=== PATIENT | female | born 1995 | race Caucasian/White ===

== ENCOUNTER 2019-09-06 22:05 | Emergency (ER) | payer BC ==
[2019-09-06] MEDS ORDERED: Ketorolac INJ* 15 MG/ML 1 ML VIAL IV ONE (22:17)
[2019-09-06] MEDS ORDERED: NS 0.9% 1000 ML** 1,000 ML IV ONE (22:17)
[2019-09-06] MEDS ORDERED: Ondansetron INJ* 2 MG/ML VIAL IV ONE (22:17)
[2019-09-06 22:58] LABS: ABS Lymphocytes 0.8 10^3/ul (1.0-4.8); ABS Monocytes 0.3 10^3/ul (0-0.8); ABS Neutrophils 1.1 10^3/ul (1.5-7.7); Eosinophil % 0.2 %; Hematocrit 40 % (35-47); Hemoglobin 13.2 g/dL (12.0-16.0); Lymphocyte % 38.3 %; Mean Corpuscular HGB Conc 33 g/dL (31-36); Mean Corpuscular Hemoglobin 30 pg (27-31); Mean Corpuscular Volume 91 fL (80-97); Mean Platelet Volume 9.1 fL (7.4-10.4); Nucleated Red Blood Cells % 0.2; Platelet Count 80 10^3/uL (150-450); Red Blood Count 4.37 10^6 /uL (3.70-4.87); Red Cell Distribution Width 14 % (10-15); White Blood Count 2.2 10^3/uL (3.5-10.8)
[2019-09-06 23:00] LABS: ALT 14 U/L (7-52); AST 22 U/L (13-39); Albumin 4.4 g/dL (3.2-5.2); Albumin/Globulin Ratio 1.8 (1-3); Alkaline Phosphatase 38 U/L (34-104); Anion Gap 6 mmol/L (2-11); BUN/Creatinine Ratio 11.6 (8-20); Blood Urea Nitrogen 11 mg/dL (6-24); C Reactive Protein 15.49 mg/L (<8.01); CO2 Carbon Dioxide 27 mmol/L (22-32); Calcium 9.2 mg/dL (8.6-10.3); Chloride 104 mmol/L (101-111); EGFR African American 88.2 (>60); EGFR Non-African American 72.9 (>60); Globulin 2.5 g/dL (2-4); Glucose 100 mg/dL (70-100); Potassium 3.2 mmol/L (3.5-5.0); Sodium 137 mmol/L (135-145); Total Protein 6.9 g/dL (6.4-8.9)
[2019-09-06 23:06] LABS: HCG Pregnancy < 0.60 mIU/mL
[2019-09-06 23:19] LABS: Urine Appearance Clear; Urine Bacteria Absent (Absent); Urine Bilirubin Negative (Negative); Urine Blood 3+ (Negative); Urine Color Yellow; Urine Glucose Negative (Negative); Urine Ketones Negative (Negative); Urine Nitrite Negative (Negative); Urine Protein Negative (Negative); Urine Red Blood Cell 3+(>10/hpf) (Absent); Urine Specific Gravity 1.016 (1.010-1.030); Urine Squamous Epithelial Cell Present (Absent); Urine Urobilinogen Negative (Negative); Urine White Blood Cell Absent (Absent)
--- NOTE | 2019-09-06 23:29 | ED ---
Complex/Multi-Sys Presentation - HPI Summary HPI Summary: This pt is a 24 Y/O F presenting to [facility] accompanied by her friend with a CC of a fever that has been present since 09/04/19 and had a highest temperature of 102 F. She also reports of left flank pain, RUQ, and lower back pain which is rated a 4/10 in severity. She states that the pain is similar to the last time she had mono. She states that the L side of her face is swelling and she has had a decrease in urine. She denies any sore throat, chills, headaches, N/V , dysuria, and decreased appetite. She states that she was recently at and began ABx treatment. She has no aggravating or alleviating factors. She states that she has a PMHx of kidney stones. She is currently menstruating. - History Of Current Complaint Chief Complaint: EDAbdPain Time Seen by Provider: 09/06/19 22:45 Hx Obtained From: Patient Onset/Duration: Sudden Onset, Lasting Days - 3, Still Present Timing: Constant Severity Currently: Moderate - 4/10 Severity Initially: Moderate Location: Pain At: - RUQ and L flank Aggravating Factor(s): nothing Alleviating Factor(s): nothing Associated Signs And Symptoms: Positive: Abdominal Pain - RUQ, Left flank, Back Pain - L low back, Fever - 102 F, Other - NEGATIVE: decreased appetite POSITIVE : swelling on the left side of her face. Negative: Headache, Nausea, Vomiting, Dysuria Related History: Similar Episode/Diagnosed As: - States that this is similar to when she was diagnosed with Marion 3 years ago - Allergies/Home Medications Allergies/Adverse Reactions: Allergies Allergy/AdvReac Type Severity Reaction Status Date / Time No Known Allergies Allergy Verified 09/06/19 22:50 PMH/Surg Hx/FS Hx/Imm Hx Previously Healthy: Yes Endocrine/Hematology History: Denies: Hx Diabetes Cardiovascular History: Denies: Hx Hypertension Respiratory History: Denies: Hx Asthma History: Reports: Hx Kidney Stones Infectious Disease History: No Infectious Disease History: Denies: Traveled Outside the [place] in Last 30 Days - Family History Known Family History: Positive: Hypertension - maternal - Social History Occupation: Student - [place] Lives: Dormitory/Roommates Alcohol Use: Occasionally Hx Substance Use: Yes Substance Use Type: Reports: Marijuana Hx Tobacco Use: No Smoking Status (MU): Never Smoked Tobacco Household Exposure: No Review of Systems Positive: Fever - 102 F . Negative: Chills Negative: Sore Throat Positive: Abdominal Pain - RUQ. Negative: Vomiting, Nausea Positive: flank pain - L sided Musculoskeletal: Other - Low back pain Negative: Headache All Other Systems Reviewed And Are Negative: Yes Physical Exam - Summary Physical Exam Summary: General: Well-developed, Well-nourished female. No acute distress. HEENT: Normocephalic, Atraumatic. Eyes: Conjuctiva normal, PERRL. Ears: TMs within normal limits. Nares: (-) discharge, (-) erythema. Oropharynx: Clear, mucous membranes moist, (-) exudates. Neck: Soft, FROM, (-) lymphadenopathy, (-) thyromegaly, (-) JVD. Cardiovascular: Normal sinus rhythm, (-) murmur. Lungs: Clear to auscultation bilaterally (-) wheezes, (-) rales, (-) rhonchi. Abdomen: Soft, non-tender, non-distended, (-) organomegaly, normal bowel sounds. Back: (-) CVA tenderness Extremities: No edema. Skin: Warm, dry, (-) rash. Neuro: Alert and oriented x3, no focal deficits. Psychiatric: Mood normal, affect normal. Triage Information Reviewed: Yes Vital Signs On Initial Exam: Initial Vitals Temp Pulse Resp BP Pulse Ox 98.4 F 84 18 142/90 99 09/06/19 22:12 09/06/19 22:12 09/06/19 22:12 09/06/19 22:12 09/06/19 22:12 Vital Signs Reviewed: Yes Procedures - Sedation Patient Received Moderate/Deep Sedation with Procedure: No Diagnostics - Vital Signs Vital Signs Temp Pulse Resp BP Pulse Ox 09/06/19 22:12 98.4 F 84 18 142/90 99 - Laboratory Lab Results: Lab Results 09/06/19 09/06/19 09/06/19 Range/Units 22:33 22:33 22:33 WBC 2.2 L (3.5-10.8) 10^3/uL RBC 4.37 (3.70-4.87) 10^6 /uL Hgb 13.2 (12.0-16.0) g/dL Hct 40 (35-47) % MCV 91 (80-97) fL MCH 30 (27-31) pg MCHC 33 (31-36) g/dL RDW 14 (10-15) % Plt Count 80 L (150-450) 10^3/uL MPV 9.1 (7.4-10.4) fL Neut % (Auto) 49.2 % Lymph % (Auto) 38.3 % Marion % (Auto) 11.9 % Eos % (Auto) 0.2 % Baso % (Auto) 0.4 % Absolute Neuts (auto) 1.1 L (1.5-7.7) 10^3/ul Absolute Lymphs (auto) 0.8 L (1.0-4.8) 10^3/ul Absolute Monos (auto) 0.3 (0-0.8) 10^3/ul Absolute Eos (auto) 0.0 (0-0.6) 10^3/ul Absolute Basos (auto) 0.0 (0-0.2) 10^3/ul Absolute Nucleated RBC 0.0 10^3/ul Nucleated RBC % 0.2 Hem Pathologist Commnt Pending INR (Anticoag Therapy) (0.82-1.09) Sodium 137 (135-145) mmol/L Potassium 3.2 L (3.5-5.0) mmol/L Chloride 104 (101-111) mmol/L Carbon Dioxide 27 (22-32) mmol/L Anion Gap 6 (2-11) mmol/L BUN 11 (6-24) mg/dL Creatinine 0.95 (0.51-0.95) mg/dL Est GFR ( Amer) 88.2 (>60) Est GFR (Non-Af Amer) 72.9 (>60) BUN/Creatinine Ratio 11.6 (8-20) Glucose 100 (70-100) mg/dL Lactic Acid 0.6 (0.5-2.0) mmol/L Calcium 9.2 (8.6-10.3) mg/dL Total Bilirubin 0.50 (0.2-1.0) mg/dL AST 22 (13-39) U/L ALT 14 (7-52) U/L Alkaline Phosphatase 38 (34-104) U/L C-Reactive Protein 15.49 H (<8.01) mg/L Total Protein 6.9 (6.4-8.9) g/dL Albumin 4.4 (3.2-5.2) g/dL Globulin 2.5 (2-4) g/dL Albumin/Globulin Ratio 1.8 (1-3) Beta HCG, Quant < 0.60 mIU/mL Urine Color Urine Appearance Urine pH (5-9) Ur Specific [place] (1.010-1.030) Urine Protein (Negative) Urine Ketones (Negative) Urine Blood (Negative) Urine Nitrate (Negative) Urine Bilirubin (Negative) Urine Urobilinogen (Negative) Ur Leukocyte Esterase (Negative) Urine WBC (Auto) (Absent) Urine RBC (Auto) (Absent) Ur Squamous Epith Cells (Absent) Urine Bacteria (Absent) Urine Glucose (Negative) 09/06/19 09/06/19 Range/Units 22:33 22:57 WBC (3.5-10.8) 10^3/uL RBC (3.70-4.87) 10^6 /uL Hgb (12.0-16.0) g/dL Hct (35-47) % MCV (80-97) fL MCH (27-31) pg MCHC (31-36) g/dL RDW (10-15) % Plt Count (150-450) 10^3/uL MPV (7.4-10.4) fL Neut % (Auto) % Lymph % (Auto) % [place] % (Auto) % Eos % (Auto) % Baso % (Auto) % Absolute Neuts (auto) (1.5-7.7) 10^3/ul Absolute Lymphs (auto) (1.0-4.8) 10^3/ul Absolute Monos (auto) (0-0.8) 10^3/ul Absolute Eos (auto) (0-0.6) 10^3/ul Absolute Basos (auto) (0-0.2) 10^3/ul Absolute Nucleated RBC 10^3/ul Nucleated RBC % Hem Pathologist Commnt INR (Anticoag Therapy) 1.00 (0.82-1.09) Sodium (135-145) mmol/L Potassium (3.5-5.0) mmol/L Chloride (101-111) mmol/L Carbon Dioxide (22-32) mmol/L Anion Gap (2-11) mmol/L BUN (6-24) mg/dL Creatinine (0.51-0.95) mg/dL Est GFR ( Amer) (>60) Est GFR (Non-Af Amer) (>60) BUN/Creatinine Ratio (8-20) Glucose (70-100) mg/dL Lactic Acid (0.5-2.0) mmol/L Calcium (8.6-10.3) mg/dL Total Bilirubin (0.2-1.0) mg/dL AST (13-39) U/L ALT (7-52) U/L Alkaline Phosphatase (34-104) U/L C-Reactive Protein (<8.01) mg/L Total Protein (6.4-8.9) g/dL Albumin (3.2-5.2) g/dL Globulin (2-4) g/dL Albumin/Globulin Ratio (1-3) Beta HCG, Quant mIU/mL Urine Color Yellow Urine Appearance Clear Urine pH 5.0 (5-9) Ur Specific [place] 1.016 (1.010-1.030) Urine Protein Negative (Negative) Urine Ketones Negative (Negative) Urine Blood 3+ A (Negative) Urine Nitrate Negative (Negative) Urine Bilirubin Negative (Negative) Urine Urobilinogen Negative (Negative) Ur Leukocyte Esterase Negative (Negative) Urine WBC (Auto) Absent (Absent) Urine RBC (Auto) 3+(>10/hpf) A (Absent) Ur Squamous Epith Cells Present A (Absent) Urine Bacteria Absent (Absent) Urine Glucose Negative (Negative) Result Diagrams: 09/06/19 22:33 09/06/19 22:33 Lab Statement: Any lab studies that have been ordered have been reviewed, and results considered in the medical decision making process. - CT A/P CT CT Interpretation Completed By: Radiologist Summary of CT Findings: No acute findings. ED physician has reviewed this report. Re-Evaluation - Re-Evaluation First Eval Re-Evaluation Time: 23:48 Change: Unchanged Comment: She states that she is having an allergic reaction to ehr ABx. Will be given benadryl. Complex Multi-Symp Course/Dx Course Of Treatment: 24-year-old female with left upper quadrant abdominal pain and right flank pain. Presenting for fevers. Patient states she was initially started on antibiotics for urinary tract infection however culture came back negative so she was instructed tonight to stop the antibiotics. However her fevers persist and abdominal pain is worsened. No vomiting. No diarrhea. Patient's symptoms improved significantly with fluids, Toradol and Zofran. CAT scan demonstrated no acute process. Patient discharged home. Viral illness. Advised plenty of fluids and rest. Follow-up with PCP. Follow-up sooner for any worsening symptoms. - Diagnoses Provider Diagnoses: Fever, Abdominal pain Discharge ED - Sign-Out/Discharge Documenting (check all that apply): Patient Departure - discharge - Discharge Plan Condition: Stable Disposition: HOME Patient Education Materials: Fever in Adults (ED), Acute Abdominal Pain (ED) Referrals: [facility] [Outside] - 2 Days Additional Instructions: PLEASE FOLLOW UP WITH [facility] IN 1-3 DAYS AND RETURN TO THE EMERGENCY DEPARTMENT FOR ANY NEW OR WORSENING SYMPTOMS. - Billing Disposition and Condition Condition: STABLE Disposition: Home - Attestation Statements Document Initiated by Johnibe: Yes Documenting Scribe: Cesar Dooley Provider For Whom Scribe is Documenting (Include Credential): Aneta Parra MD Scribe Attestation: Cesar Cruz, scribed for Aneta Parra MD on 09/07/19 at 0543. Scribe Documentation Reviewed: Yes Provider Attestation: The documentation as recorded by the Cesar gerber accurately reflects the service I personally performed and the decisions made by Aneta mary MD Status of Scribe Document: Viewed
[2019-09-06] MEDS ORDERED: diPHENhydraMINE IV* 50 MG/ML 1 ml VIAL (BENADRYL) IV ONE (23:49)
[2019-09-07] MEDS ORDERED: Iohexol 300* (CONTRAST) 10 ML SDV IV ONE (00:35)
[2019-09-07 02:52] VITALS: BP 124/72
== END 2019-09-07 03:15 | disposition home or self-care (01) ==
LOC: ED 22:05
DX: R50.9 Fever, unspecified (principal); R10.11 Right upper quadrant pain; M54.5 Low back pain; Z32.02 Encounter for pregnancy test, result negative; Z87.442 Personal history of urinary calculi
CPT/HCPCS: 36415; 74177; 80053; 81003; 81015; 83605; 84702; 85025; 85060; 85610; 86140; 87040; 96361; 96374; 99283; J1200; J1885; J2405; Q9967

== ENCOUNTER 2019-12-11 16:59 | Emergency (ER) | payer BC ==
[2019-12-11] MEDS ORDERED: Acetaminophen TAB* 325 MG PO ONE (17:45)
[2019-12-11] MEDS ORDERED: NS 0.9% 1000 ML** 1,000 ML IV ONE (18:32)
--- NOTE | 2019-12-11 18:40 | ED ---
Influenza-Like Illness - HPI Summary HPI Summary: The patient is a 24 y/o female presenting to [facility] with a chief complaint of worsening influenza-like symptoms today. She reports that she was diagnosed with the flu at [facility] yesterday and was placed on Tamiflu although she didnt have a flu test taken. She has been experiencing a nonproductive cough, fever, chest congestion, and difficulty breathing. She has been taking Tylenol and Ibuprofen to no relief of the fever. Symptoms are currently rated 8/10 in severity. She did not get the flu vaccine this year. PMHx: kidney stones. Nonsmoker, occasional EtOH, no substance use. Medications reviewed. Allergies noted. - History of Current Complaint Chief Complaint: EDFluSymptoms Time Seen by Provider: 12/11/19 18:01 Hx Obtained From: Patient Onset/Duration: Lasting Days, Still Present Severity: Moderate Associated Signs & Symptoms: Fever, Cough - Allergy/Home Medications Allergies/Adverse Reactions: Allergies Allergy/AdvReac Type Severity Reaction Status Date / Time No Known Allergies Allergy Verified 12/11/19 17:21 Home Medications: Home Medications Oseltamivir CAP* [Tamiflu CAP*] 75 mg PO BID 12/11/19 [History Confirmed ] PMH/Surg Hx/FS Hx/Imm Hx Endocrine/Hematology History: Denies: Hx Diabetes Cardiovascular History: Denies: Hx Hypertension Respiratory History: Denies: Hx Asthma History: Reports: Hx Kidney Stones - Surgical History Surgical History: None Surgery Procedure, Year, and Place: none Infectious Disease History: No Infectious Disease History: Denies: Traveled Outside the [place] in Last 30 Days - Family History Known Family History: Positive: Hypertension - maternal - Social History Alcohol Use: Occasionally Hx Substance Use: Yes Substance Use Type: Reports: None Hx Tobacco Use: No Smoking Status (MU): Never Smoked Tobacco Review of Systems Positive: Fever Positive: Cough - nonproductive, difficulty breathing, Other - chest congestion , difficulty breathing All Other Systems Reviewed And Are Negative: Yes Physical Exam - Summary Physical Exam Summary: Constitutional: Well-developed, Well-nourished, Alert. (-) Distressed Skin: Warm, Dry HENT: Normocephalic; Atraumatic Eyes: Conjunctiva normal Neck: Musculoskeletal ROM normal neck. (-) JVD, (-) Stridor, (-) Nuchal rigidity Cardio: Tachycardia, Heart sounds normal; Intact distal pulses; Radial pulses are 2+ and symmetric. (-) Murmur Pulmonary/Chest wall: Effort normal. (-) Respiratory distress, (-) Wheezes, (-) Rales Abd: Soft, (-) tenderness, (-) Distension, (-) Guarding, (-) Rebound Musculoskeletal: (-) Edema Lymph: (-) Cervical adenopathy Neuro: Alert, Oriented x3 Psych: Mood and affect Normal Triage Information Reviewed: Yes Vital Signs On Initial Exam: Initial Vitals Temp Pulse Resp BP Pulse Ox 100.6 F 109 20 145/84 98 12/11/19 17:18 12/11/19 17:18 12/11/19 17:18 12/11/19 17:18 12/11/19 17:18 Vital Signs Reviewed: Yes Procedures - Sedation Patient Received Moderate/Deep Sedation with Procedure: No Diagnostics - Vital Signs Vital Signs Temp Pulse Resp BP Pulse Ox 12/11/19 17:18 100.6 F 109 20 145/84 98 - Laboratory Result Diagrams: 12/11/19 19:03 12/11/19 19:03 Lab Statement: Any lab studies that have been ordered have been reviewed, and results considered in the medical decision making process. - Radiology CXR Radiology Interpretation Completed By: ED Physician Summary of Radiographic Findings: No acute process. ED physician has reviewed and interpreted this report. Pending official read. Re-Evaluation - Re-Evaluation First Eval Re-Evaluation Time: 19:45 Comment: Discussed with patient flu positive, negative CXR, and d/c plan Flu Symptom Course/Dx - Course Course Of Treatment: 24 y/o F p/w flu like illness. - VS mild tachycardia, febrile. Patient given fluids and Tylenol. Flu A+. Chest x-ray w/o obvious infiltrate. Patient well appearing, with stable vitals. Patient does not have increased work of breathing, productive cough to suggest pneumonia. No headache , neck pain or nuchal rigidity. Tolerating by mouth. Plan for discharge w symptomatic control and will return for worsening symptoms. - Diagnoses Provider Diagnoses: Influenza Discharge ED - Sign-Out/Discharge Documenting (check all that apply): Patient Departure - Patient will be discahrged home. - Discharge Plan Condition: Stable Disposition: HOME Patient Education Materials: Influenza (ED) Referrals: [facility] [Outside] - 3 Days Additional Instructions: You were seen in the emergency department for flu like symptoms. You have flu A. Please drink lots of fluids, take Motrin Tylenol for pain. Please follow up with your primary care doctor in next 2-3 days and return to emergency department for worsening cough, fevers greater than 5 days, trouble breathing, chest pain or concerning symptoms. It was a pleasure taking care of you today. - Billing Disposition and Condition Condition: STABLE Disposition: Home - Attestation Statements Document Initiated by Manuela: Yes Documenting Scribe: Emmy Hollis Provider For Whom Manuela is Documenting (Include Credential): Dr. Victoria Leigh MD Scribe Attestation: IEmmy scribed for Dr. Victoria Leigh MD on 12/11/19 at 1952. Scribe Documentation Reviewed: Yes Provider Attestation: The documentation as recorded by the Emmy gerber accurately reflects the service I personally performed and the decisions made by me, Dr. Victoria Leigh MD Status of Scrashley Document: Viewed
[2019-12-11 19:13] LABS: Influenza A Molecular POSITIVE (Negative)
[2019-12-11 19:13] LABS: ABS Lymphocytes 0.5 10^3/ul (1.0-4.8); ABS Monocytes 0.3 10^3/ul (0-0.8); Eosinophil % 0.1 %; Hematocrit 36 % (35-47); Hemoglobin 12.4 g/dL (12.0-16.0); Lymphocyte % 17.4 %; Mean Corpuscular HGB Conc 34 g/dL (31-36); Mean Corpuscular Hemoglobin 31 pg (27-31); Mean Corpuscular Volume 91 fL (80-97); Mean Platelet Volume 8.2 fL (7.4-10.4); Nucleated Red Blood Cells % 0.1; Platelet Count 130 10^3/uL (150-450); Red Blood Count 3.99 10^6 /uL (3.70-4.87); Red Cell Distribution Width 13 % (10-15); White Blood Count 2.8 10^3/uL (3.5-10.8)
[2019-12-11] MEDS ORDERED: Ketorolac INJ* 30 MG/ML 1 ML VIAL IV ONE (19:18)
[2019-12-11 19:29] LABS: Albumin 3.9 g/dL (3.2-5.2); BUN/Creatinine Ratio 7.6 (8-20); EGFR African American 109.1 (>60); EGFR Non-African American 90.2 (>60); Potassium 3.6 mmol/L (3.5-5.0); Total Bilirubin 0.3 mg/dL (0.2-1.0); Total Protein 5.9 g/dL (6.4-8.9)
[2019-12-11 19:54] VITALS: BP 123/74
== END 2019-12-11 19:55 | disposition home or self-care (01) ==
LOC: ED 16:59
DX: J11.1 Influenza due to unidentified influenza virus with other respiratory manifestations (principal)
CPT/HCPCS: 36415; 71046; 80053; 85025; 96361; 96374; 99282; A9270-GY; J1885